=== PATIENT | female | born 1995 | race Two or more races ===

== ENCOUNTER 2020-09-27 13:27 | Observation (INO) | payer OTHER ==
[~2020-09-27] VITALS: Ht 162.6 cm; Wt 66.7 kg
[2020-09-27 13:29] VITALS: BP 114/75
[2020-09-27] MEDS ORDERED: FERR-20 PO (14:20)
[2020-09-27 15:05] LABS: Basophils # (auto) 0 10 ^3/uL (0-0.2); Basophils % (auto) 0.4 % (0.0-2.0); Eosinophils # (auto) 0.1 10 ^3/uL (0-0.8); Eosinophils % (auto) 1.3 % (0.0-7.0); Hematocrit 35.9 % (36.0-46.0); Hemoglobin 12.2 g/dL (12.2-16.2); Lymphocytes # (auto) 1.6 10 ^3/uL (0.4-5.4); Lymphocytes % (auto) 17.7 % (10.0-50.0); Mean Corpuscular Hemoglobin 29.1 pg (28.0-32.0); Mean Corpuscular Volume 85.7 fL (80.0-100.0); Monocytes # (auto) 0.4 10 ^3/uL (0-1.3); Monocytes % (auto) 4.5 % (0.0-12.0); Neutrophils % (auto) 76.1 % (37.0-80.0); Nucleated Red Blood Cells % 0.1 %; Platelet Count (auto) 160 10^3/uL (140-450); Red Blood Cells 4.19 10^6/uL (4.0-5.20); White Blood Cell 9.2 10^3/uL (4.4-10.8)
[2020-09-27 15:16] LABS: Red Cell Distribution Width 22.5 % (11.8-14.3)
[2020-09-27 15:51] LABS: Albumin 2.4 g/dL (3.4-5.0); Calcium 8.8 mg/dL (8.5-10.1); Potassium 3.9 mmol/L (3.5-5.1)
[2020-09-27 15:55] LABS: BUN/Creatinine Ratio 23.1; Bilirubin, Total 0.3 mg/dL (0.2-1.0); Total Protein 6.5 g/dL (6.4-8.2); Uric Acid 3.3 mg/dL (2.6-6.0)
[2020-09-27 17:29] LABS: Amphetamine Screen, Urine NEGATIVE (NEGATIVE); Barbiturate Scree,Urine NEGATIVE (NEGATIVE); Benzodiazephine Screen, Urine NEGATIVE (NEGATIVE); Cannabinoid Screen, Urine NEGATIVE (NEGATIVE); Cocaine Screen, Urine NEGATIVE (NEGATIVE); Opiate Scree,Urine NEGATIVE (NEGATIVE); Phencyclidine Screen, Urine NEGATIVE (NEGATIVE)
== END 2020-09-27 16:29 | disposition home or self-care (01) ==
LOC: ER 13:27 → LDRP 13:28
PROVIDERS: ADMIT Obstetrics & Gynecology; ATTEND Obstetrics & Gynecology
DX: O36.8130 Decreased fetal movements, third trimester, not applicable or unspecified (principal); O99.12 Other diseases of the blood and blood-forming organs and certain disorders involving the immune mechanism complicating childbirth; D84.9 Immunodeficiency, unspecified; O26.893 Other specified pregnancy related conditions, third trimester; N89.8 Other specified noninflammatory disorders of vagina; Z79.899 Other long term (current) drug therapy; Z3A.37 37 weeks gestation of pregnancy
CPT/HCPCS: 36415; 59025; 76805; 76818; 80053; 80307; 81002; 84550; 85025; 94760; 99284; G0378

== ENCOUNTER 2023-05-28 23:34 | Emergency (ER) | payer OTHER ==
[~2023-05-28] VITALS: Ht 162.6 cm; Wt 72.0 kg
[~2023-05-28 23:34] MED LIST: FERR325T24 PO
[2023-05-28 23:43] VITALS: BP 103/62; PULSE 110; RESP 18; O2SAT 97
[2023-05-29] MEDS ORDERED: ONDANSETRON ODT 4 MG TAB PO ONE (02:45)
[2023-05-29] MEDS ORDERED: IBUPROFEN 800 MG TAB PO ONE (02:45)
[2023-05-29] MEDS ORDERED: DICL1GEL73 TD (05:27)
[2023-05-29] MEDS ORDERED: IBUP-1455 PO (05:27)
== END 2023-05-29 05:57 | disposition home or self-care (01) ==
LOC: ER 23:34
DX: M25.562 Pain in left knee (principal); M25.572 Pain in left ankle and joints of left foot; W10.8XXA Fall (on) (from) other stairs and steps, initial encounter; Y93.89 Activity, other specified; Y92.89 Other specified places as the place of occurrence of the external cause; Y99.8 Other external cause status
CPT/HCPCS: 29505; 73562; 73610; 99284; Q0162

== ENCOUNTER 2025-01-24 11:10 | Emergency (ER) | payer OTHER ==
[~2025-01-24] VITALS: Ht 162.6 cm; Wt 76.8 kg
[~2025-01-24 11:10] MED LIST changes: +DICL1GEL73 TD; +IBUP-1455 PO
[2025-01-24 11:16] VITALS: TEMP 98.4
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
[2025-01-24 12:01] LABS: Urine Protein, UAD Negative (Negative)
[2025-01-24 12:15] LABS: Hemoglobin 12.3 g/dL (12.2-16.2)
[2025-01-24 12:17] LABS: Hematocrit 37.1 % (36.0-46.0); Mean Corpuscular Hemoglobin 24.8 pg (28.0-32.0); Mean Corpuscular Volume 74.6 fL (80.0-100.0); Nucleated Red Blood Cells % 0.1 %
[2025-01-24 12:52] LABS: Chloride 106 mmol/L (98-107); Potassium 3.6 mmol/L (3.5-5.1); Sodium 140 mmol/L (136-145)
[2025-01-24 12:53] LABS: Anion Gap 11 (5-15); Calcium 10.0 mg/dL (8.7-10.4); Carbon Dioxide 23 mmol/L (20-31)
--- NOTE | 2025-01-24 12:55 | DVH ---
INDICATION: chest pain TECHNIQUE: Frontal view of the chest. COMPARISON: None FINDINGS: . The heart and mediastinal contours are grossly unremarkable. There is no evidence of pleural disea se. The lungs are clear. The bony structures of the chest are intact without fracture. IMPRESSION: 1. No evidence of acute disease.
[2025-01-24 12:58] LABS: BUN/Creatinine Ratio 13.2 (10.0-20.0)
[2025-01-24 12:59] LABS: Blood Urea Nitrogen 9 mg/dL (9-23); Glucose 126 mg/dL (74-106)
[2025-01-24] MEDS: cefTRIAXone 1GM/50ML D5W 50 ML IV ONE (14:16)
[2025-01-24 14:17] VITALS: BP 108/65; PULSE 67; RESP 20; O2SAT 98
--- NOTE | 2025-01-25 06:24 | ECG ---
[facility] Test Date: 2025-01-24 Test Time: 12:26:02 Pat Name: LALA PARRISH Department: [facility] ED Patient ID: [id number] Room: Gender: F Beck Tender: bernadette : 1995 Requested By: MEGAN ARANDA Order Number: [id number] Reading MD: Merritt Emery Measurements Intervals [place] Rate: 86 P: 57 KS: 129 QRS: 89 QRSD: 84 T: 56 QT: 341 QTc: 408 Interpretive Statements Sinus rhythm Borderline Q waves in lateral leads Borderline T wave abnormalities Baseline wander in lead(s) II,III,aVF,V3,V4,V5,V6 Electronically Signed On 01-25-2025 11:19:56 PDT by Merritt Emery Please click the below link to view image of tracing.
== END 2025-01-24 14:33 | disposition home or self-care (01) ==
LOC: ER 11:10
DX: F41.0 Panic disorder [episodic paroxysmal anxiety] (principal); R07.89 Other chest pain
CPT/HCPCS: 36415; 71045; 80048; 81001; 81025; 85025; 85379; 93005; 96365; 99285; J0696